=== PATIENT | male | born 1985 | race African-American/Black ===

== ENCOUNTER 2018-04-10 08:27 | Emergency (ER) | payer OTHER ==
[~2018-04-10] VITALS: Ht 167.6 cm; Wt 90.7 kg
[2018-04-10] MEDS ORDERED: NAPROXEN500 MG PO (13:24)
== END 2018-04-10 13:53 | disposition home or self-care (01) ==
LOC: ER 08:27
DX: B34.9 Viral infection, unspecified (principal)

== ENCOUNTER 2020-02-14 14:10 | Emergency (ER) | payer OTHER ==
[~2020-02-14] VITALS: Ht 170.2 cm; Wt 92.5 kg
[~2020-02-14 14:10] MED LIST: NAPROXEN500 MG PO
[2020-02-14] MEDS ORDERED: PROAIR HFA8.5 GM (14:24)
[2020-02-14] MEDS ORDERED: BUDEO.25 (14:25)
[2020-02-14] MEDS ORDERED: ALBUTEROL2.5 MG/3 M IH (15:18)
[2020-02-14] MEDS ORDERED: DOLOGEN CAPLET1 EACH PO (15:18)
[2020-02-14] MEDS ORDERED: MEDROLPACK PO (15:18)
[2020-02-14] MEDS ORDERED: ZITHROMAX500 MG PO (15:18)
[2020-02-14] MEDS ORDERED: TUSNEL LIQUID178 ML PO (15:18)
== END 2020-02-14 18:36 | disposition home or self-care (01) ==
LOC: ER 14:10
DX: U07.1 COVID-19 (principal); B34.9 Viral infection, unspecified